=== PATIENT | male | born 1980 | race Hispanic/Latino ===

== ENCOUNTER 2024-07-16 05:00 | Emergency (ER) | payer SELFPAY ==
[2024-07-16 05:02] VITALS: BP 160/90
--- NOTE | 2024-07-16 05:26 | ED.GENMED ---
History of Present Illness
<Mindy Villegas MD, Resident - Last Filed: 07/17/24 01:04>
General
Chief Complaint: Skin Problem
Time Seen by Provider: 07/16/24 05:15
History of Present Illness
History of Present Illness:
The patient is a 44 year old male who presented today with rashes since last Tuesday. The patient reported that he had contact with Becca whil
<Tramaine Winn, DO - Last Filed: 07/16/24 06:04>
General
Source: patient
History of Present Illness
History of Present Illness:
The patient is a 44 year old male who presented to ER complaining from his swollen eyelids, lips and rashes ( his left arm, left leg,neck). The patient reports that he had contact with poison becca Tuesday and he started to have these symptoms
gradually and got worsen. He reported applying Benadryl cream on his rashes and denied taking any medication. He reported some blurry vision after he had eyelids swollen.
PMH: None
PSH: None
Past History
<Mindy Villegas MD, Resident - Last Filed: 07/17/24 01:04>
Past History
ED Past Medical History: Other (vertigo, COVID 07/27/21); Negative Asthma, HTN, Hypercholesterolemia or NIDDM
ED Past Surgical History: None
Social History
Tobacco: Non-smoker
Alcohol: None
Personal:
Living: with family
Review of Systems
<Tramaine Winn DO - Last Filed: 07/16/24 06:04>
Review of Systems
Allergies reviewed?: Yes
Other source history: family
All Other Systems: ROS reviewed and negative except as documented in HPI and ROS
Constitutional: Reports no symptoms
EENT: Reports no symptoms
Respiratory: Reports no symptoms
Cardiac: Reports no symptoms
ABD/GI: Reports no symptoms
: Reports no symptoms
Musculoskeletal: Reports no symptoms
Skin: Reports itching and rash
Neurological: Reports no symptoms
Endocrine: Reports no symptoms
Hematologic/Lymphatic: Reports no symptoms
Psychiatric: Reports anxiety
Phy Exam
<Tramaine Winn, DO - Last Filed: 07/16/24 06:04>
General Physical Exam
General Presentation: well appearing and no apparent distress
General Skin: warm and dry
General Habitus: normal
General Mental: alert
General Hydration: appears well hydrated
ENT Exam
ENT Exam: EOMI, pharynx normal, neck supple and normocephalic
Eye Exam
Eye Exam: PERRL, cornea clear and conjunctiva normal
Cardiovascular Exam
Cardiovascular Exam: regular rate/rhythm, no edema, no murmur and normal peripheral pulses
Pulmonary Exam
Pulmonary Exam: lungs clear, no respiratory distress, no rales, no crackles, no rhonchi, no stridor, no wheezing and no cough
Gastrointestinal Exam
Gastrointestinal Exam: normal bowel sounds, non tender, soft, no organomegaly, no pulsatile mass and non distended
Neurological Exam
Neurological Exam: alert, oriented x3, no motor deficits and speech normal
Musculoskeletal Exam
Musculoskeletal Exam: full ROM and no edema
Skin Exam
Skin Exam: no petechia, redness and other (Linear Rhus dermatitis on arms left leg and upper chest.)
Psychiatric Exam
Psychiatric Exam: normal mood/affect
Course
<Mindy Villegas MD, Resident - Last Filed: 07/17/24 01:04>
Orders/Labs/Results
Orders:
Orders
07/16/24 05:24
Dexamethasone Sod Phosphate [Decadron] 10 mg IV NOW STA
07/16/24 05:28
Dexamethasone [Decadron] 10 mg PO NOW STA
07/16/24 05:52
Diphenhydramine [Benadryl] 25 mg .ROUTE .STK-MED ONE
07/16/24 05:54
Diphenhydramine [Benadryl] 25 mg PO NOW STA
07/16/24 22:38
Orthostatic VS- Treatment ONCE
Vital Signs
Initial and Last Documented VS:
Initial Vital Signs
Temp Pulse Resp BP Pulse Ox
98.9 F 54 20 160/90 98
07/16/24 05:02 07/16/24 05:02 07/16/24 05:02 07/16/24 05:02 07/16/24 05:02
Last Documented Vital Signs
Temp Pulse Resp BP Pulse Ox
98.9 F 54 20 160/90 98
07/16/24 05:02 07/16/24 05:02 07/16/24 05:02 07/16/24 05:02 07/16/24 05:02
<Tramaine Winn, DO - Last Filed: 07/16/24 06:04>
Orders/Labs/Results
Orders:
Orders
07/16/24 05:24
Dexamethasone Sod Phosphate [Decadron] 10 mg IV NOW STA
07/16/24 05:28
Dexamethasone [Decadron] 10 mg PO NOW STA
07/16/24 05:52
Diphenhydramine [Benadryl] 25 mg .ROUTE .STK-MED ONE
07/16/24 05:54
Diphenhydramine [Benadryl] 25 mg PO NOW STA
07/16/24 22:38
Orthostatic VS- Treatment ONCE
Vital Signs
Initial and Last Documented VS:
Initial Vital Signs
Temp Pulse Resp BP Pulse Ox
98.9 F 54 20 160/90 98
07/16/24 05:02 07/16/24 05:02 07/16/24 05:02 07/16/24 05:02 07/16/24 05:02
Last Documented Vital Signs
Temp Pulse Resp BP Pulse Ox
98.9 F 54 20 160/90 98
07/16/24 05:02 07/16/24 05:02 07/16/24 05:02 07/16/24 05:02 07/16/24 05:02
<Mindy Villegas MD, Resident - Last Filed: 07/17/24 01:04>
*Critical Care Note
Total Time (30-74mins, 75-104mins- exclusive of procedures): Not Applicable
ED Attending Note
<Mindy Villegas MD, Resident - Last Filed: 07/17/24 01:04>
-
Portions of this chart may have been created with voice recognition software.� Occasional wrong word or��sound alike� substitutions may have occurred due to the inherent limitations of voice recognition software.
<Tramaine Winn, - Last Filed: 07/16/24 06:04>
ED Attending Note
Patient seen and examined by attending physician: Yes
I performed a history and physical exam of patient and discussed management with resident, I reviewed resident's note and agree with documented findings and plan of care.: Yes
ED Attending Note:
Pleasant 44-year-old male who presents with poison becca on his arms his legs upper chest and face. He works in the [employer] business, building pools. He was exposed to poison becca on . Patient had contact with poison becca while at work. Denies
chest pain or shortness of breath. Does report some swelling over the face. Denies any visual acuity changes. Reports no fever or chills. Patient was seen in conjunction with the resident. I have reviewed and agree with the history and
treatment plan presented. On my independent physical exam, patient is awake, alert, and oriented x3. He does have some linear dermatitis on the arms legs face chest and neck. This is likely poison becca. It does not to appear infected or
cellulitic. Patient to receive recommendations for Benadryl and a prescription for prednisone, long-term. Patient advised not to operate heavy machinery or motor vehicles while taking Benadryl.
Discharge Plan
Departure
Patient Disposition: Home (Routine Discharge)
Patient with high blood pressure during this ER visit?: Yes
Discharge Problem:
Poison [place] dermatitis
Instructions: Wound Care (DC), Poison [place], Poison [place], Poison [place] (DC), BLOOD PRESSURE
Prescriptions:
New
prednisone 10 mg tablet
10 mg PO DIRECTED Qty: 45 0RF
Rx Instructions:
Take 50mg PO x 3 days, 40mg PO x 3 days,30mg PO x3 days, 20mg PO x 3 days, 10mg PO x 3 days
diphenhydramine HCl [Benadryl] 25 mg capsule
25 mg PO TID PRN (Reason: allergy symptoms) Qty: 14 0RF
No Action
meclizine 25 MG tablet
25 mg PO Q8HPRN PRN (Reason: nausea or vertigo) Qty: 15 0RF
famotidine 20 MG tablet
20 mg PO BID Qty: 28 0RF
Rx Instructions:
Take 20 mg twice a day for 14 days
ascorbic acid (vitamin C) [Vitamin C] 500 MG tablet
1,000 mg PO BID Qty: 56 0RF
Rx Instructions:
Take 1,000 mg twice a day for 14 days
aspirin 81 MG tablet,chewable
81 mg PO DAILY Qty: 14 0RF
Rx Instructions:
Take 81 mg daily for 14 days
zinc sulfate 220 MG capsule
220 mg PO DAILY Qty: 14 0RF
Rx Instructions:
Take 220 mg daily for 14 days
cholecalciferol (vitamin D3) 1,000 UNITS tablet
2,000 units PO DAILY Qty: 28 0RF
Rx Instructions:
Take 2,000 units daily for 14 days
melatonin 5 MG tablet
5 mg PO HS Qty: 14 0RF
Rx Instructions:
Take 5 mg daily at bedtime for 14 days
dexamethasone [Decadron] 6 MG tablet
6 mg PO DAILY Qty: 7 0RF
Interventions
Interventions:
*Risk Screen - Suicide Last Done: 07/16/24 05:07
*General Assessment Last Done: 07/16/24 05:38
*Neglect/Abuse Screening Last Done: 07/16/24 05:07
*Nursing Disposition Last Done: 07/16/24 05:57
Discharge Date and Time
Discharge Date/Time: 07/16/24 05:57
Print Language: SLOV[place]
[2024-07-16] MEDS: DECADRON 10 MG PO (05:35)
[2024-07-16 05:38] VITALS: BMI 31.9
--- NOTE | 2024-07-16 05:45 | ED.GENMED ---
History of Present Illness
General
Chief Complaint: Skin Problem
Source: patient
Time Seen by Provider: 07/16/24 05:15
History of Present Illness
History of Present Illness:
The patient is a 44 year old male who presented to ER complaining from his swollen eyelids, lips and rashes ( his left arm, left leg,neck). The patient reports that he had contact with poison becca Tuesday and he started to have these symptoms
gradually and got worsen. He reported applying Benadryl cream on his rashes and denied taking any medication. He reported some blurry vision after he had eyelids swollen.
PMH: None
PSH: None
If applicable-neuro sx onset
Date of onset of symptoms: 07/16/24
Past History
Past History
ED Past Medical History: Other (vertigo, COVID 07/27/21); Negative Asthma, HTN, Hypercholesterolemia or NIDDM
ED Past Surgical History: None
Social History
Tobacco: Non-smoker
Alcohol: None
Personal:
Living: with family
Phy Exam
General Physical Exam
General Presentation: moderate distress
General Skin: warm
General Mental: alert
ENT Exam
ENT Exam: pharynx normal
Cardiovascular Exam
Cardiovascular Exam: regular rate/rhythm
Pulmonary Exam
Pulmonary Exam: lungs clear, no respiratory distress, no stridor and no wheezing
Neurological Exam
Neurological Exam: alert and oriented x3
Skin Exam
Skin Exam: redness and other (rash on his left arm and left leg and around neck. )
Course
Orders/Labs/Results
Orders:
Orders
07/16/24 05:24
Dexamethasone Sod Phosphate [Decadron] 10 mg IV NOW STA
07/16/24 05:28
Dexamethasone [Decadron] 10 mg PO NOW STA
07/16/24 05:52
Diphenhydramine [Benadryl] 25 mg .ROUTE .STK-MED ONE
07/16/24 05:54
Diphenhydramine [Benadryl] 25 mg PO NOW STA
Vital Signs
Initial and Last Documented VS:
Initial Vital Signs
Temp Pulse Resp BP Pulse Ox
98.9 F 54 20 160/90 98
07/16/24 05:02 07/16/24 05:02 07/16/24 05:02 07/16/24 05:02 07/16/24 05:02
Last Documented Vital Signs
Temp Pulse Resp BP Pulse Ox
98.9 F 54 20 160/90 98
07/16/24 05:02 07/16/24 05:02 07/16/24 05:02 07/16/24 05:02 07/16/24 05:02
*Critical Care Note
Total Time (30-74mins, 75-104mins- exclusive of procedures): Not Applicable
ED Attending Note
-
Portions of this chart may have been created with voice recognition software.� Occasional wrong word or��sound alike� substitutions may have occurred due to the inherent limitations of voice recognition software.
Discharge Plan
Departure
Patient Disposition: Home (Routine Discharge)
Patient with high blood pressure during this ER visit?: Yes
Discharge Problem:
Poison becca dermatitis
Instructions: Wound Care (DC), Poison [place], Poison [place], Poison [place] (DC), BLOOD PRESSURE
Prescriptions:
New
prednisone 10 mg tablet
10 mg PO DIRECTED Qty: 45 0RF
Rx Instructions:
Take 50mg PO x 3 days, 40mg PO x 3 days,30mg PO x3 days, 20mg PO x 3 days, 10mg PO x 3 days
diphenhydramine HCl [Benadryl] 25 mg capsule
25 mg PO TID PRN (Reason: allergy symptoms) Qty: 14 0RF
No Action
meclizine 25 MG tablet
25 mg PO Q8HPRN PRN (Reason: nausea or vertigo) Qty: 15 0RF
famotidine 20 MG tablet
20 mg PO BID Qty: 28 0RF
Rx Instructions:
Take 20 mg twice a day for 14 days
ascorbic acid (vitamin C) [Vitamin C] 500 MG tablet
1,000 mg PO BID Qty: 56 0RF
Rx Instructions:
Take 1,000 mg twice a day for 14 days
aspirin 81 MG tablet,chewable
81 mg PO DAILY Qty: 14 0RF
Rx Instructions:
Take 81 mg daily for 14 days
zinc sulfate 220 MG capsule
220 mg PO DAILY Qty: 14 0RF
Rx Instructions:
Take 220 mg daily for 14 days
cholecalciferol (vitamin D3) 1,000 UNITS tablet
2,000 units PO DAILY Qty: 28 0RF
Rx Instructions:
Take 2,000 units daily for 14 days
melatonin 5 MG tablet
5 mg PO HS Qty: 14 0RF
Rx Instructions:
Take 5 mg daily at bedtime for 14 days
dexamethasone [Decadron] 6 MG tablet
6 mg PO DAILY Qty: 7 0RF
Interventions
Interventions:
*Risk Screen - Suicide Last Done: 07/16/24 05:07
*General Assessment Last Done: 07/16/24 05:38
*Neglect/Abuse Screening Last Done: 07/16/24 05:07
*Nursing Disposition Last Done: 07/16/24 05:57
Discharge Date and Time
Discharge Date/Time: 07/16/24 05:57
Print Language: [place]AIW[place]
[2024-07-16] MEDS: BENADRYL 25 MG PO (05:54)
== END 2024-07-16 05:57 | disposition home or self-care (01) ==
LOC: EMR 05:00
PROVIDERS: EMERGENCY PHYSICIAN Student in an Organized Health Care Education/Training Program
DX: L23.7 Allergic contact dermatitis due to plants, except food (principal); Z86.16 Personal history of COVID-19
CPT/HCPCS: 99282